=== PATIENT | male | born 1945 | race Caucasian/White ===

== ENCOUNTER 2016-03-27 00:50 | Day surgery (SDC) | payer MEDICARE ==
[~2016-03-27] VITALS: Ht 185.4 cm; Wt 111.8 kg
[2016-03-27] VITALS (8 sets, daily range): BP systolic 102–143; BP diastolic 69–99; PULSE 65–87; RESP 14–19; O2SAT 92–97
[~2016-03-27 00:50] MED LIST: DABI150C PO; GABA-502 PO; LEVO50TA6 PO; LOVA40TA PO; METO25TA99 PO; MULT1CAP33 PO; SILD20TA14 PO; UBID10CA4 PO; [UNRECOGNIZED DRUG - CODE] PO
[2016-03-27] MEDS ORDERED: 0.9% Sodium Chloride 1,000 ML ONE (12:06)
[2016-03-27 13:37] LABS: BASOPHILS % (AUTO) 0.2 % (0-3); EOSINOPHILS % (AUTO) 2.3 % (0-5); Mean Corpuscular Hemoglobin 29.7 pg (27.0-35.0); Mean Corpuscular Volume 88.4 fL (81-100); NEUTROPHILS % (AUTO) 61.3 % (40-74); Platelet Count 204 bil/L (150-400)
[2016-03-27] MEDS ORDERED: OMEG-38 PO (13:44)
[2016-03-27] MEDS ORDERED: METO25TA99 PO (13:44)
[2016-03-27] MEDS ORDERED: FLC50T PO (13:44)
--- NOTE | 2016-03-27 13:45 | NUR ---
[facility] Admit Admitted to [facility] about 1250. VSS. Confirmed on Pradaxa at least 2 months. Tele Afib in 70's-80's. Denies pain. IV started and labs sent. Procedure and recovery reviewed and verbalizes understanding. Awaiting MD.
[2016-03-27 13:51] LABS: INR 0.96 ratio
[2016-03-27] MEDS ORDERED: Atropine 1 mg/10 mL (Code) Syringe ONE (13:56)
[2016-03-27] MEDS ORDERED: Flumazenil 0.1 mg/mL 5 mL Inj IV ONE (13:56)
[2016-03-27] MEDS ORDERED: Methohexital 10 mg/mL 50 mL Inj ONE (13:57)
--- NOTE | 2016-03-27 14:31 | PROCED ---
[address] [address] PROCEDURE NOTE PATIENT: SAYRA MCKINNEY : 1945 MR#: [id number] ADMIT: 03/27/2016 JOB ID: [id number] DATE OF SERVICE: 03/27/2016 PREOPERATIVE DIAGNOSIS(ES): Atrial fibrillation. POSTOPERATIVE DIAGNOSIS(ES): Sinus rhythm. PROCEDURE PERFORMED: Direct current cardioversion. SURGEON: Rickey Zhang MD, electrophysiology attending. SEDATION: Versed 1 mg, and 40 mg of Brevital were utilized for appropriate level of sedation. INDICATION: The patient is a pleasant 70-year-old man with a structurally normal heart and symptomatic atrial fibrillation. He has been placed on flecainide and beta blockade, and has had adequate anticoagulation with over one month of therapeutic Pradaxa usage. After discussion of risks and benefits of cardioversion, he opted to proceed. PROCEDURAL DESCRIPTION: Following informed signed consent, the patient was taken to the procedure suite in a fasting state where defibrillator patches were placed in the anterior and posterior positions. After adequate sedation, a 200 joule biphasic synchronized shock was used to convert him to a sinus rhythm. He will be allowed to recover and discharged home for close followup. DISPOSITION: To home with family. COMPLICATIONS: None. ESTIMATED BLOOD LOSS: None. IMPRESSION: Successful direct current cardioversion. PLAN: 1. Recovery and discharge from the [facility]. 2. Continue Pradaxa, flecainide and metoprolol. 3. Follow up with Jameson Landon PA-C in four weeks and thereafter with me. ATTENDING STATEMENT: Rickey Zhang MD, electrophysiology attending, was present for and performed all aspects of this procedure.
--- NOTE | 2016-03-27 15:49 | NUR ---
Procedure/Discharge Procedure done at 1409. Versed 1mg IV and Brevital 40mg IV ordered and given. Cardioverted with 200J x1 and converted to SR in 60's. Returned to baseline by 1430. Stated ready to get up at 1445. Up and ambulated in ba with steady gait. Discharge instructions given, see sheets. Verbalizes understanding. IV discontinued intact. Discharged ambulatory with all belongings in no distress at 1500.
== END 2016-03-27 23:59 | disposition home or self-care (01) ==
LOC: SOUO 00:50
PROVIDERS: ATTEND Internal Medicine Cardiovascular Disease
DX: I48.1 Persistent atrial fibrillation (principal); Z79.01 Long term (current) use of anticoagulants; E78.5 Hyperlipidemia, unspecified; K21.9 Gastro-esophageal reflux disease without esophagitis; G25.0 Essential tremor
CPT/HCPCS: 36415; 80048; 85025; 85610; 92960; 93005; 99151; J2250; J7030